=== PATIENT | female | born 1975 | race Caucasian/White ===

== ENCOUNTER 2016-11-07 16:15 | Inpatient (IN) | payer OTHER ==
[~2016-11-07] VITALS: Ht 165.1 cm; Wt 79.7 kg
[~2016-11-07 16:15] MED LIST: Ecotrin PO; Habitrol,Nicoderm CQ TD; NOHOMEMEDS; Protonix PO
[2016-11-07 18:01] LABS: HEMATOCRIT 38.3 % (36.0-46.0); MCH 30.7 PG (29.0-34.0); MCHC 33.4 G/DL (30.0-36.0); MCV 91.8 FL (83-99); MEAN PLAT.VOLUME 10.6 uM^3 (9.5-12.4); PLATELET COUNT 289 K/uL (156-360); RBC DIS.WIDTH-CV 12.7 % (11.8-14.6); RBC DIS.WIDTH-SD 42.5 % (39-53); RED BLOOD COUNT 4.17 M/uL (3.80-5.20); WHITE BLOOD COUNT 6.8 K/uL (4.1-10.2)
[2016-11-07 18:10] LABS: CHLORIDE 102 mEq/L (99-109); POTASSIUM 3.5 mEq/L (3.7-5.4); SODIUM 136 mEq/L (136-147)
[2016-11-07 18:11] LABS: GLUCOSE 80 mg/dL (70-99)
[2016-11-07 18:13] LABS: ANION GAP 10 MEQ/L (2-14)
[2016-11-07 18:15] LABS: GFR ESTIMATE (CALCULATED) > 59 mL/min/
[2016-11-07 18:16] LABS: UREA NITROGEN (BUN) 10 mg/dL (9-23)
[2016-11-07] MEDS ORDERED: OXYCODONE-APAP1 EACH PO (20:56)
[2016-11-07] MEDS ORDERED: FENTANYL1 EAC2 TD (20:56)
[2016-11-07] MEDS ORDERED: CLEOCIN300 MG PO (20:57)
[2016-11-07] MEDS ORDERED: ALPRAZOLAM0.25 M2 PO (20:57)
[2016-11-07] MEDS ORDERED: CHANTIX1 EACH PO (20:58)
[2016-11-07] MEDS ORDERED: METAXALONE800 MG PO (20:58)
[2016-11-07] MEDS ORDERED: MELOXICAM15 MG PO (20:58)
[2016-11-07 23:33] VITALS: BP 129/60
[2016-11-08 03:56] VITALS: BP 97/54
[2016-11-08 07:05] VITALS: BP 93/50
[2016-11-08 07:10] LABS: BASOPHIL COUNT 0.1 K/uL (0-0.1); EOSINOPHIL COUNT 0.4 K/uL (0-0.3); HEMATOCRIT 37.3 % (36.0-46.0); IMMATURE GRANULOCYTE (%) 0.2 % (0.0-0.7); INSTRUMENT ABS NEUTROPHIL CT 2.1 K/uL; LYMPHOCYTE COUNT 2.7 K/uL (1.0-2.8); MCH 31.3 PG (29.0-34.0); MCHC 33.5 G/DL (30.0-36.0); MCV 93.3 FL (83-99); MEAN PLAT.VOLUME 11.1 uM^3 (9.5-12.4); MONOCYTE (%) 8.4 % (3-12); MONOCYTE COUNT 0.5 K/uL (0-0.8); NEUTROPHIL (%) 37.3 % (45-76); NEUTROPHIL COUNT 2.1 K/uL (1.8-6.4); PLATELET COUNT 275 K/uL (156-360); RBC DIS.WIDTH-CV 12.9 % (11.8-14.6); WHITE BLOOD COUNT 5.7 K/uL (4.1-10.2)
[2016-11-08 07:42] LABS: ANION GAP 7 MEQ/L (2-14); CHLORIDE 107 MEQ/L (99-109); GFR ESTIMATE (CALCULATED) > 59 mL/min/; GLUCOSE 92 mg/dL (70-99); SAMPLE HEMOLYSIS CHECK 0; SAMPLE ICTERIC CHECK 0; SAMPLE LIPEMIA CHECK 0; SODIUM 139 MEQ/L (136-147); UREA NITROGEN (BUN) 14 mg/dL (9-23)
[2016-11-08 19:20] VITALS: BP 101/56
[2016-11-08 23:59] VITALS: BP 99/58
[2016-11-09 03:27] VITALS: BP 90/51
[2016-11-09 07:36] VITALS: BP 92/50
[2016-11-09 07:43] LABS: EOSINOPHIL (%) 4.7 % (0-5); EOSINOPHIL COUNT 0.2 K/uL (0-0.3); HEMATOCRIT 37.6 % (36.0-46.0); IMMATURE GRANULOCYTE (%) 0.2 % (0.0-0.7); INSTRUMENT ABS NEUTROPHIL CT 2.3 K/uL; MCH 31.8 PG (29.0-34.0); MCHC 33.8 G/DL (30.0-36.0); MCV 94.2 FL (83-99); MEAN PLAT.VOLUME 10.9 uM^3 (9.5-12.4); MONOCYTE (%) 7.2 % (3-12); MONOCYTE COUNT 0.4 K/uL (0-0.8); NEUTROPHIL (%) 46.5 % (45-76); NEUTROPHIL COUNT 2.3 K/uL (1.8-6.4); PLATELET COUNT 245 K/uL (156-360); RBC DIS.WIDTH-CV 12.9 % (11.8-14.6); RBC DIS.WIDTH-SD 44.6 % (39-53); RED BLOOD COUNT 3.99 M/uL (3.80-5.20); WHITE BLOOD COUNT 4.9 K/uL (4.1-10.2)
[2016-11-09 08:16] LABS: ANION GAP 6 MEQ/L (2-14); CHLORIDE 108 MEQ/L (99-109); GFR ESTIMATE (CALCULATED) > 59 mL/min/; GLUCOSE 87 mg/dL (70-99); POTASSIUM 4.7 MEQ/L (3.7-5.4); SAMPLE HEMOLYSIS CHECK 0; SAMPLE ICTERIC CHECK 0; SAMPLE LIPEMIA CHECK 0; SODIUM 137 MEQ/L (136-147); UREA NITROGEN (BUN) 8 mg/dL (9-23)
[2016-11-09 12:29] VITALS: BP 117/59
[2016-11-09] MEDS ORDERED: BACTRIM,SEPT1 TABLET PO (15:28)
== END 2016-11-09 16:36 | disposition home or self-care (01) | DRG 603 ==
LOC: EME 16:15 → EDOF 20:52 → 2EAST 20:52 → EDOF 22:15 → 2EAST 22:15
PROVIDERS: Internal Medicine; Physician Assistant; Student in an Organized Health Care Education/Training Program
DX: L03.113 Cellulitis of right upper limb (principal); L03.115 Cellulitis of right lower limb; B95.5 Unspecified streptococcus as the cause of diseases classified elsewhere; Z16.39 Resistance to other specified antimicrobial drug; E87.6 Hypokalemia; S41.101A Unspecified open wound of right upper arm, initial encounter; S81.801A Unspecified open wound, right lower leg, initial encounter; X58.XXXA Exposure to other specified factors, initial encounter; F17.200 Nicotine dependence, unspecified, uncomplicated; K21.9 Gastro-esophageal reflux disease without esophagitis; F41.9 Anxiety disorder, unspecified; G89.29 Other chronic pain; M54.5 Low back pain; Z91.040 Latex allergy status; Z88.0 Allergy status to penicillin
CPT/HCPCS: 80048; 80202; 83605; 85025; 85027; 87040; 87070; 87075; 87205; 99281; 99285; J1644; J3370; J7030

== ENCOUNTER 2016-11-23 10:41 | Emergency (ER) | payer OTHER ==
[~2016-11-23] VITALS: Ht 165.1 cm; Wt 77.5 kg
[~2016-11-23 10:41] MED LIST changes: +ALPRAZOLAM0.25 M2 PO; +BACTRIM,SEPT1 TABLET PO; +CHANTIX1 EACH PO; +CLEOCIN300 MG PO; +FENTANYL1 EAC2 TD; +MELOXICAM15 MG PO; +METAXALONE800 MG PO; +OXYCODONE-APAP1 EACH PO
[2016-11-23 13:30] LABS: HEMATOCRIT 40.1 % (36.0-46.0); MCH 30.4 PG (29.0-34.0); MCHC 33.2 G/DL (30.0-36.0); MCV 91.8 FL (83-99); RBC DIS.WIDTH-CV 12.6 % (11.8-14.6); RBC DIS.WIDTH-SD 42.8 % (39-53); RED BLOOD COUNT 4.37 M/uL (3.80-5.20); WHITE BLOOD COUNT 5.7 K/uL (4.1-10.2)
[2016-11-23 13:39] LABS: CHLORIDE 102 mEq/L (99-109); POTASSIUM 4.6 mEq/L (3.7-5.4); SODIUM 132 mEq/L (136-147)
[2016-11-23 13:41] LABS: GLUCOSE 88 mg/dL (70-99)
[2016-11-23 13:43] LABS: ANION GAP 6 MEQ/L (2-14); TOTAL BILIRUBIN 0.3 mg/dL (0.0-1.0)
[2016-11-23 13:45] LABS: ALKALINE PHOSPHATASE 45 IU/L (3-129); GFR ESTIMATE (CALCULATED) > 59 mL/min/
[2016-11-23 13:46] LABS: UREA NITROGEN (BUN) 12 mg/dL (9-23)
[2016-11-23 14:12] LABS: MEAN PLAT.VOLUME 11.7 uM^3 (9.5-12.4); PLAT.SUFFICIENCY ADEQUATE
[2016-11-23 14:14] LABS: PLATELET COUNT 166 K/uL (156-360)
[2016-11-23] MEDS ORDERED: BACTRIM,SEPT1 TABLET PO (14:42)
[2016-11-23 14:57] VITALS: BP 106/73
== END 2016-11-23 14:58 | disposition home or self-care (01) ==
LOC: EME 10:41
PROVIDERS: Physician Assistant
DX: L03.115 Cellulitis of right lower limb (principal); F17.200 Nicotine dependence, unspecified, uncomplicated
CPT/HCPCS: 80053; 85027; 99281; 99284

== ENCOUNTER 2017-05-11 16:10 | Emergency (ER) | payer OTHER ==
[~2017-05-11] VITALS: Ht 165.1 cm; Wt 76.3 kg
[2017-05-11 17:04] LABS: MCH 32.2 PG (29.0-34.0); MCHC 34.7 G/DL (30.0-36.0); MCV 92.7 FL (83-99); MEAN PLAT.VOLUME 10.8 uM^3 (9.5-12.4); PLATELET COUNT 281 K/uL (156-360); RBC DIS.WIDTH-CV 12.6 % (11.8-14.6); RBC DIS.WIDTH-SD 43.2 % (39-53); WHITE BLOOD COUNT 8.4 K/uL (4.1-10.2)
[2017-05-11 17:17] LABS: CHLORIDE 103 mEq/L (99-109); POTASSIUM 3.2 mEq/L (3.7-5.4); SODIUM 137 mEq/L (136-147)
[2017-05-11 17:18] LABS: MAGNESIUM 2.1 mg/dL (1.3-2.7)
[2017-05-11 17:19] LABS: GLUCOSE 95 mg/dL (70-99)
[2017-05-11 17:20] LABS: ANION GAP 10 MEQ/L (2-14)
[2017-05-11 17:21] LABS: TROP-I INTERPRETATION NEGATIVE; TROPONIN-I < 0.01 ng/mL (0.0-0.30)
[2017-05-11 17:23] LABS: GFR ESTIMATE (CALCULATED) > 59 mL/min/
[2017-05-11 17:24] LABS: UREA NITROGEN (BUN) 12 mg/dL (9-23)
[2017-05-11 17:25] LABS: CREATINE KINASE 59 IU/L (1-294)
[2017-05-11 21:25] LABS: TROP-I INTERPRETATION NEGATIVE; TROPONIN-I < 0.01 ng/mL (0.0-0.30)
[2017-05-11] MEDS ORDERED: INDOCIN50 MG PO (21:58)
[2017-05-11 22:15] VITALS: BP 106/65
== END 2017-05-11 22:20 | disposition home or self-care (01) ==
LOC: EME 16:10
PROVIDERS: Physician Assistant
DX: R07.89 Other chest pain (principal); S29.012A Strain of muscle and tendon of back wall of thorax, initial encounter; X58.XXXA Exposure to other specified factors, initial encounter; R06.02 Shortness of breath; F17.200 Nicotine dependence, unspecified, uncomplicated; Z82.49 Family history of ischemic heart disease and other diseases of the circulatory system; Z88.0 Allergy status to penicillin
CPT/HCPCS: 71020; 71275; 80048; 82550; 83735; 84484; 85027; 85379; 93005; 99281; 99285; J7030

== ENCOUNTER 2017-09-10 12:39 | Emergency (ER) | payer OTHER ==
[~2017-09-10] VITALS: Ht 165.1 cm; Wt 71.1 kg
[~2017-09-10 12:39] MED LIST changes: +INDOCIN50 MG PO
[2017-09-10 15:04] VITALS: BP 120/61
== END 2017-09-10 15:14 | disposition home or self-care (01) ==
LOC: EME 12:39
DX: S00.33XA Contusion of nose, initial encounter (principal); S13.9XXA Sprain of joints and ligaments of unspecified parts of neck, initial encounter; J34.2 Deviated nasal septum; V44.5XXA Car driver injured in collision with heavy transport vehicle or bus in traffic accident, initial encounter; Y92.410 Unspecified street and highway as the place of occurrence of the external cause; M54.9 Dorsalgia, unspecified; G89.29 Other chronic pain; F17.200 Nicotine dependence, unspecified, uncomplicated; Z90.710 Acquired absence of both cervix and uterus; Z88.0 Allergy status to penicillin; Z88.8 Allergy status to other drugs, medicaments and biological substances
CPT/HCPCS: 70160; 72040; 99281; 99284

== ENCOUNTER → 2017-09-20 | Outpatient (CLI) | payer OTHER | END | disposition home or self-care (01) | LOC: NUC 09:54 | DX: M54.5 Low back pain (principal); G89.29 Other chronic pain; R52 Pain, unspecified; M47.896 Other spondylosis, lumbar region; R53.1 Weakness; R29.2 Abnormal reflex; G47.20 Circadian rhythm sleep disorder, unspecified type; F17.200 Nicotine dependence, unspecified, uncomplicated; Z87.19 Personal history of other diseases of the digestive system; M25.40 Effusion, unspecified joint; R53.82 Chronic fatigue, unspecified; M46.1 Sacroiliitis, not elsewhere classified; M79.1 Myalgia; M25.50 Pain in unspecified joint | CPT/HCPCS: 78306; A9503 ==